=== PATIENT | female | born 1940 | race Caucasian/White ===

== ENCOUNTER 2016-07-02 12:16 | Emergency (ER) | payer MEDICARE ==
[2016-07-02] MEDS ORDERED: LEVEMIR100 UNITS/ SC (12:41)
[2016-07-02] MEDS ORDERED: NOVOLOG100 UNITS/ (12:41)
[2016-07-02] MEDS ORDERED: MOBIC7.5 M2 PO (12:42)
[2016-07-02] MEDS ORDERED: FISH OIL 1,0001 EAC6 PO (12:42)
[2016-07-02] MEDS ORDERED: TRAZODONE HCL50 M1 PO (12:42)
[2016-07-02] MEDS ORDERED: TOPROL XL25 M1 PO (12:43)
[2016-07-02] MEDS ORDERED: NORCO 5-325 TA1 EACH PO (13:37)
== END 2016-07-02 13:50 ==
LOC: EDMED 12:16
PROC: 2W3CXYZ Immobilization of Right Lower Arm using Other Device (ICD-10-PCS; principal; 2016-07-02)
DX: S52.614A Nondisplaced fracture of right ulna styloid process, initial encounter for closed fracture (principal); S52.514A Nondisplaced fracture of right radial styloid process, initial encounter for closed fracture; E11.9 Type 2 diabetes mellitus without complications; Z79.4 Long term (current) use of insulin; W01.0XXA Fall on same level from slipping, tripping and stumbling without subsequent striking against object, initial encounter; Y92.015 Private garage of single-family (private) house as the place of occurrence of the external cause